=== PATIENT | female | born 1935 | race Caucasian/White ===

== ENCOUNTER 2018-11-17 22:27 | Emergency (ER) | payer MEDICARE, OTHER ==
[~2018-11-17] VITALS: Ht 162.6 cm; Wt 59.9 kg
[~2018-11-17 22:27] MED LIST: AMLODIPINE BESY10 MG PO; LISINOPRIL10 MG PO; LORAZEPAM1 MG PO; METOPROLOL ER PO
--- OUTSIDE RECORDS SUMMARY | 2018-11-17 22:29 | XMS REPORT ---
Author [facility] Address Unknown Phone Unavailable Care Team Providers Care Carpet Inspector Name Role Phone Unavailable Unavailable Payers Payer Name Policy Type Policy Number Effective Date Expiration Date Problems This patient has no known problems. Allergies, Adverse Reactions, Alerts Allergy Name Allergy Type Status Severity Reaction(s) Onset Date Inactive Date Treating Clinician Comments latex DA Active NV 2018-03-26 00:00:00 latex DA Active NV 2017-08-24 00:00:00 Medications This patient has no known medications.
[2018-11-17] MEDS ORDERED: MACROBID 100 M100 MG PO (23:13)
[2018-11-17] MEDS ORDERED: KEFLEX500 MG PO (23:13)
[2018-11-17 23:46] LABS: BACTERIA,URINE MANY /HPF; EPITHELIAL CELLS,URINE FEW /LPF; WBC,URINE (MAN) >50 /HPF (0-5)
[2018-11-17 23:47] LABS: TRANSITIONAL EPI CELLS,URINE FEW
[2018-11-17 23:48] LABS: CLARITY,URINE CLOUDY (CLEAR); COLOR,URINE YELLOW (YELLOW)
[2018-11-17 23:49] LABS: LEUKOCYTE ESTERASE ,URINE 2+ (NEGATIVE); NITRITE,URINE POSITIVE (NEGATIVE)
[2018-11-17 23:50] LABS: PROTEIN,URINE DIPSTICK 2+ (NEGATIVE)
[2018-11-17 23:51] LABS: BILIRUBIN,URINE SMALL (NEGATIVE); KETONES,URINE NEGATIVE (NEGATIVE); URINE UROBILINOGEN 0.2 mg/dL (0.2 - 1)
== END 2018-11-18 00:19 | disposition home or self-care (01) ==
LOC: ER 22:27
DX: R41.82 Altered mental status, unspecified (principal); N30.91 Cystitis, unspecified with hematuria; Z87.891 Personal history of nicotine dependence
CPT/HCPCS: 81001; 87086; 87186; 99282